=== PATIENT | female | born 1940 | race Caucasian/White ===

== ENCOUNTER 2018-09-22 04:22 | Emergency (ER) | payer MEDICARE, BC ==
[~2018-09-22] VITALS: Ht 160 cm; Wt 92.1 kg
[~2018-09-22 04:22] MED LIST: KEFLEX250 MG PO; LEVOXYL25 MCG PO; NIFEDIPINE ER60 MG PO; NORCO 7.5-3251 EACH PO; ZANTAC 7575 MG PO
--- OUTSIDE RECORDS SUMMARY | 2018-09-22 04:29 | XMS REPORT | Continuity of Care Document ---
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, angina presence unspecified Active Problem 12/09/2017 [facility] Other symptoms involving cardiovascular system Active Diagnosis 06/03/2017 [facility] Heart block Active Diagnosis 06/29/2017 [facility] Cardiac arrhythmia, unspecified cardiac arrhythmia type Active Diagnosis 06/29/2017 [facility] Syncope, unspecified syncope type Active Diagnosis 06/29/2017 [facility] SHORTNESS OF BREATH Active [facility] Medications Medication Details Route Status Patient Instructions Ordering Provider Order Date Source Lisinopril 1 tablet if Bp over 140 Orally Active 10 MG Orally Once a day as needed Lela 05/31/2017 [facility] Omeprazole 1 capsule Orally Active 20 MG Orally Once a day in a.m. [facility] Levoxyl 1 tablet on an empty stomach in the morning Orally Active 25 MCG Orally Once a day [facility] NIFEdipine ER 1 tablet on an empty stomach Orally Active 60 MG Orally Once a day [facility] Omeprazole 1 capsule Orally Active 40 MG Orally Once a day at p.m. [facility] Lisinopril 1 tablet if bp over 140 Orally Active 20 MG Orally Once a day as needed [facility] Lisinopril 1 tablet if Bp over 140 Orally Active 10 MG Orally Once a day as needed [facility] Levoxyl 1 tablet on an empty stomach in the morning Orally Active 25 MCG Orally Once a day [facility] Omeprazole 1 capsule Orally Active 40 MG Orally Once a day at p.m. [facility] Omeprazole 1 capsule Orally Active 20 MG Orally Once a day in a.m. [facility] Cardi[facility] Amlodipine Besylate 1 tablet Orally Active 5 MG Orally Once a day [facility] Lipitor 1 tablet Orally Active 10 MG Orally Once a day [facility]ovascular Allergies, Adverse Reactions, Alerts Substance Category Reaction Severity Reaction type Status Date Reported Comments Source N.K.D.A. Adverse Reaction Info Not Available Adverse Reaction Active 06/28/2017 [facility] Immunizations Immunization Date Given Site Status Last Updated Comments Source Results Order Name Results Value Reference Range Date Interpretation Comments Source Chest 2 views DX Chest 2 views DX Clinical Indication: Coughing, dyspnea; Comparison: None FINDINGS: Patient chin obscures the lung apices. The PA and lateral chest radiographs shows normal lung volumes with bibasilar opacities, blunted costophrenic angles. No visible pneumothorax. Left chest wall pacemaker obscures portions of this exam. Cardiac silhouette size shows minimal enlargement. Thoracic aorta contains atherosclerotic calcifications. The trachea is midline. There are no clinically significant osseous abnormalities noted. IMPRESSION: Suspected small pleural effusions with basilar atelectasis and/or infiltrates SL: HAIM 06/06/2018 - - Read by: Mynor Steven MD Dictated Date/time: 06/06/18 18:03 Electronically Signed by: Mynor Steven MD 06/06/18 18:04 FINAL REPORT [facility] CTA Chest CTA CTA PULMONARY ARTERIES HISTORY: Shortness of breath with any activity; TECHNIQUE: Thin collimation axial images of the pulmonary arteries with IV contrast. Sagittal reformatted images and coronal MIP and 3-D reconstructions obtained. IV CONTRAST: [address] imaging performed at this location utilizes radiation dose optimization techniques which include one or more of the following: -Automated exposure control -Adjustment of the mA and/or kV according to patient size -Use of iterative reconstruction technique CT Radiation Dose DLP 853.21 mGy-cm COMPARISON: Chest radiography dated 06/06/2018 FINDINGS: PULMONARY ARTERIES: No evidence of pulmonary embolism. LUNGS AND PLEURA: Evaluation lungs limited by respiratory motion artifact. Question mild patchy groundglass opacities which may represent air trapping or possibly very mild pulmonary edema. There are small bilateral layering pleural effusions with mild bilateral basilar atelectasis. No pneumothorax. MEDIASTINUM: No mediastinal mass or fluid collection. Mildly prominent mediastinal lymph nodes are noted, nonspecific. Moderate aortic and mild coronary calcification. Heart demonstrates dilation of the left ventricle and left atrium. A dual lead transvenous cardiac pacemaker is in place. No pericardial effusion. Probable small sliding hiatal hernia. BASE OF NECK, UPPER ABDOMEN, SOFT TISSUES, AND BONES: The neck base soft tissues are normal. Thyroid gland is atrophied. The visualized portion of the upper abdominal contents demonstrates cholecystectomy and fatty atrophy of the pancreas. No acute osseous abnormality or aggressive osseous lesion in the chest. IMPRESSION: 1. No pulmonary embolism. 2. Evaluation lungs limited by respiratory motion artifact. Question mild patchy groundglass opacities which may represent air trapping or possibly mild pulmonary edema. 3. Small bilateral layering pleural effusions. 4. Mild nonspecific mediastinal adenopathy, mild/moderate atherosclerotic calcifications, cardiomegaly, transvenous cardiac pacemaker, probable small hiatal hernia. SL: JACINTA 06/06/2018 - - Read by: Myron Pope MD Dictated Date/time: 06/07/18 17:21 Electronically Signed by: Myron Pope MD 06/07/18 17:28 FINAL REPORT [facility] Vital Signs Vital Sign Value Date Comments Source Weight 196 06/28/2017 [facility] Heart Rate 80 06/28/2017 [facility] Diastolic (mm Hg) 70 06/28/2017 [facility] Systolic (mm Hg) 142 06/28/2017 [facility] Weight 196 06/01/2017 [facility] Heart Rate 74 06/01/2017 [facility] Diastolic (mm Hg) 86 06/01/2017 [facility] Systolic (mm Hg) 144 06/01/2017 [facility] Weight 196 05/26/2017 [facility] Heart Rate 76 05/26/2017 [facility] Diastolic (mm Hg) 50 05/26/2017 [facility] Systolic (mm Hg) 104 05/26/2017 [facility] Weight 193 05/18/2017 [facility] Heart Rate 78 05/18/2017 [facility] Diastolic (mm Hg) 82 05/18/2017 [facility] Systolic (mm Hg) 122 05/18/2017 [facility] Encounters Location Location Details Encounter Type Encounter Number Reason For Visit Attending Provider ADM Date DC Date Status Source Procedures Procedure Code Date Perfomer Comments Source
--- OUTSIDE RECORDS SUMMARY | 2018-09-22 04:29 | XMS REPORT ---
Author Author Jesusita Vogel Organization [employer] Address Unknown Phone Unavailable Care Team Providers Care Materials Handler Name Role Phone Jesusita Vogel CP Unavailable Allergies No Known Allergies Problems Problem Type Condition Code Onset Dates Condition Status Assessment SOB (shortness of breath) R06.02 Active Assessment Abnormal EKG R94.31 Active Problem HTN (hypertension), benign I10 Active Assessment Other symptoms involving cardiovascular system R09.89 Active Assessment HTN (hypertension), benign I10 Active Assessment Pre-syncope R55 Active Medications No Known Medications Results No Known Results Summary Purpose [employer] Submission
--- OUTSIDE RECORDS SUMMARY | 2018-09-22 04:29 | XMS REPORT ---
Author Author Jesusita Vogel Organization [employer] Address Unknown Phone Unavailable Care Team Providers Care Pillow Filler Name Role Phone Jesusita Vogel CP Unavailable Allergies, Adverse Reactions, Alerts Substance Reaction Event Type N.K.D.A. Info Not Available Non Drug Allergy Problems Problem Type Condition Code Onset Dates Condition Status Assessment SSS (sick sinus syndrome) I49.5 Active Problem HTN (hypertension), benign I10 Active Assessment SOB (shortness of breath) R06.02 Active Problem SSS (sick sinus syndrome) I49.5 Active Assessment Pre-syncope R55 Active Assessment Other symptoms involving cardiovascular system R09.89 Active Assessment Abnormal EKG R94.31 Active Assessment HTN (hypertension), benign I10 Active Medications Medication Code System Code Instructions Start Date End Date Status Dosage Levoxyl [facility] [address]-78 25 MCG Orally Once a day Active 1 tablet on an empty stomach in the morning NIFEdipine ER [facility] [address]-01 60 MG Orally Once a day Active 1 tablet on an empty stomach Omeprazole [facility] [address]-19 20 MG Orally Once a day in a.m. Active 1 capsule Lisinopril [facility] 53765254858 10 MG Orally Once a day as needed Active 1 tablet if Bp over 140 Omeprazole [facility] [address]-17 40 MG Orally Once a day at p.m. Active 1 capsule Vital Signs Date/Time: Jun 01, 2017 BMI 38.27 Index Weight 196 lbs Height 5'3 in Cardiac Monitoring Heart Rate 74 /min Blood Pressure Diastolic 86 mm Hg Blood Pressure Systolic 144 mm Hg Results No Known Results Summary Purpose [employer] Submission
--- OUTSIDE RECORDS SUMMARY | 2018-09-22 04:29 | XMS REPORT ---
Author Author Jesusita Vogel Organization [employer] Address Unknown Phone Unavailable Care Team Providers Care Antique Clocks Repairer Name Role Phone Jesusita Vogel CP Unavailable Allergies No Known Allergies Problems Problem Type Condition Code Onset Dates Condition Status Problem HTN (hypertension), benign I10 Active Problem SSS (sick sinus syndrome) I49.5 Active Medications Medication Code System Code Instructions Start Date End Date Status Dosage Lisinopril [facility] [address]-87 10 MG Orally Once a day as needed May 31, 2017 Active 1 tablet if Bp over 140 Results No Known Results Summary Purpose [employer] Submission
--- OUTSIDE RECORDS SUMMARY | 2018-09-22 04:29 | XMS REPORT ---
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
--- OUTSIDE RECORDS SUMMARY | 2018-09-22 04:29 | XMS REPORT | Clinical Summary ---
Author Author [facility] Organization [facility] Address Unknown Phone Unavailable Care Team Providers Care Drilling Field Specialist Name Role Phone Asked, No Pcp PCP Unavailable Allergies Comments Active Allergy Reactions Severity Noted Date Adhesive Tape-Silicones Rash High 09/02/2017 Medications End Date Status Medication Sig Dispensed Refills Start Date Active levothyroxine (SYNTHROID, TK 1 T PO QD 0 LEVOXYL) 100 mcg tablet 7 Active valsartan-hydrochlorothia TK 1 T PO QAM 5 zide (DIOVAN-HCT) 7 160-12.5 mg per tablet Active omeprazole (PriLOSEC) 40 Take 40 mg by 0 MG capsule mouth nightly. Active omeprazole (PriLOSEC) 20 Take 20 mg by 0 MG capsule mouth daily. Active naproxen sodium (ALEVE) Take 220 mg 0 220 MG tablet by mouth as needed for mild pain. 10/04/2017 amLODIPine (NORVASC) 10 Take 1 tablet 30 tablet 0 mg tablet (10 mg total) 8 by mouth daily for 30 days. Active Problems Problem Noted Date Hypertensive emergency 09/01/2017 Social History Date Tobacco Use Types Packs/Day Years Used Never Smoker Smokeless Tobacco: Never Used Alcohol Use Drinks/Week oz/Week Comments No Sex Assigned at Date Recorded Not on file Industry Job Start Date Occupation Not on file Not on file Not on file Travel End Travel History Travel Start No recent travel history available. Last Filed Vital Signs Not on file Plan of Treatment Health Maintenance Due Date Last Done Comments SHINGLES VACCINES (#1) 10/09/1989 65+ PNEUMOCOCCAL VACCINE 10/09/2004 (1 of 2 - PCV13) PNEUMOCOCCAL 10/09/2004 POLYSACCHARIDE VACCINE AGE 65 AND OVER INFLUENZA VACCINE 02/23/2018 Implants Device Identifier Shelf Expiration Date Model / Serial / Lot Implanted Type Area Manufactur er Pacemaker Pacemaker Results Not on fileafter 09/21/2017 Insurance Payer Benefit Subscriber ID Type Phone Address Plan / Group MEDICARE MEDICARE xxxxxxxxxx Medicare [place], [place] PART A AND B BCBS BCBS xxxxxxxxxxxx PPO CHOICE PPO/RONALD VIRAMONTES PPO Advance Directives Patient has advance care planning documents, and code status on file. For more i nformation, please contact: Madi Hill [address] [place] [address] Date Inactivated Comments Code Status Date Activated 09/03/2017 6:54 PM Full Code 09/01/2017 11:47 PM Code Status decision reached by: Patient
--- OUTSIDE RECORDS SUMMARY | 2018-09-22 04:29 | XMS REPORT ---
Author Author Jesusita Vogel Organization [employer] Address Unknown Phone Unavailable Care Team Providers Care Escapement Maker Name Role Phone Jesusita Vogel CP Unavailable [...] Instructions Start Date End Date Status Dosage NIFEdipine ER [facility] [address]-76 60 MG Orally Once a day Active 1 tablet on an empty stomach Omeprazole [facility] [address]-55 40 MG Orally Once a day at p.m. Active 1 capsule Levoxyl [facility] [address]-97 25 MCG Orally Once a day Active 1 tablet on an empty stomach in the morning Omeprazole [facility] [address]-76 20 MG Orally Once a day in a.m. Active 1 capsule Vital Signs Date/Time: May 26, 2017 BMI 38.27 Index Weight 196 lbs Height 5'3 in Cardiac Monitoring Heart Rate 76 /min Blood Pressure Diastolic 50 mm Hg Blood Pressure Systolic 104 mm Hg Results No Known Results Summary Purpose [employer] Submission
--- OUTSIDE RECORDS SUMMARY | 2018-09-22 04:29 | XMS REPORT ---
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
--- OUTSIDE RECORDS SUMMARY | 2018-09-22 04:29 | XMS REPORT ---
Author Author Jesusita Vogel Organization [employer] Address Unknown Phone Unavailable Care Team Providers Care Soft Work Wrapper Examiner Name Role Phone Jesusita Vogel CP Unavailable Allergies No Known Allergies Problems Problem Type Condition Code Onset Dates Condition Status Assessment SOB (shortness of breath) R06.02 Active Assessment Abnormal EKG R94.31 Active Problem HTN (hypertension), benign I10 Active Assessment HTN (hypertension), benign I10 Active Assessment Pre-syncope R55 Active Medications No Known Medications Results No Known Results Summary Purpose [employer] Submission
--- OUTSIDE RECORDS SUMMARY | 2018-09-22 04:29 | XMS REPORT ---
Author Author Jesusita Vogel Organization [employer] Address Unknown Phone Unavailable Care Team Providers Care Steam Pan Sponger Name Role Phone Jesusita Vogel CP Unavailable Allergies, Adverse Reactions, Alerts Substance Reaction Event Type N.K.D.A. Info Not Available Non Drug Allergy Problems Problem Type Condition Code Onset Dates Condition Status Assessment SOB (shortness of breath) R06.02 Active Assessment Abnormal EKG R94.31 Active Problem HTN (hypertension), benign I10 Active Assessment HTN (hypertension), benign I10 Active Assessment Pre-syncope R55 Active Medications Medication Code System Code Instructions Start Date End Date Status Dosage Omeprazole [facility] [address]-08 20 MG Orally Once a day in a.m. Active 1 capsule Levoxyl [facility] [address]-34 25 MCG Orally Once a day Active 1 tablet on an empty stomach in the morning NIFEdipine ER [facility] [address]-42 60 MG Orally Once a day Active 1 tablet on an empty stomach Omeprazole [facility] [address]-52 40 MG Orally Once a day at p.m. Active 1 capsule Vital Signs Date/Time: May 18, 2017 BMI 37.69 Index Weight 193 lbs Height 5'3 in Cardiac Monitoring Heart Rate 78 /min Blood Pressure Diastolic 82 mm Hg Blood Pressure Systolic 122 mm Hg Results No Known Results Summary Purpose [employer] Submission
--- OUTSIDE RECORDS SUMMARY | 2018-09-22 04:29 | XMS REPORT ---
Author Author Jesusita Vogel Organization [employer] Address Unknown Phone Unavailable Care Team Providers Care Bead Wire Taper Name Role Phone Jesusita Vogel CP Unavailable Allergies No Known Allergies Problems Problem Type Condition Code Onset Dates Condition Status Problem HTN (hypertension), benign I10 Active Problem SSS (sick sinus syndrome) I49.5 Active Medications No Known Medications Results No Known Results Summary Purpose [employer] Submission
--- OUTSIDE RECORDS SUMMARY | 2018-09-22 04:29 | XMS REPORT ---
Author Author Jesusita Vogel Organization [employer] Address Unknown Phone Unavailable Care Team Providers Care Receptionist/Telephone Operator Name Role Phone Jesusita Vogel CP Unavailable Allergies, Adverse Reactions, Alerts Substance Reaction Event Type N.K.D.A. 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 Active 1 capsule Omeprazole ND 22733187746 20 MG Orally Once a day in a.m. Active 1 capsule Amlodipine Besylate ND 13997413712 5 MG Orally Once a day Active 1 tablet Lipitor ND 73970172291 10 MG Orally Once a day Active 1 tablet Vital Signs Date/Time: Jun 28, 2017 BMI 38.27 Index Weight 196 lbs Height 5'3 in Cardiac Monitoring Heart Rate 80 /min Blood Pressure Diastolic 70 mm Hg Blood Pressure Systolic 142 mm Hg Results No Known Results Summary Purpose [employer]Works Submission
--- OUTSIDE RECORDS SUMMARY | 2018-09-22 04:29 | XMS REPORT ---
Author Author Jesusita Vogel Organization [employer] Address Unknown Phone Unavailable Care Team Providers Care Miter Cutter Name Role Phone Jesusita Vogel CP Unavailable [...]
--- OUTSIDE RECORDS SUMMARY | 2018-09-22 04:30 | XMS REPORT ---
Author Author [facility] Address Unknown Phone Unavailable Care Team Providers Care Fare Register Repairer Name Role Phone Remington ADAN Unavailable Unavailable Problems This patient has no known problems. Allergies, Adverse Reactions, Alerts This patient has no known allergies or adverse reactions. Medications This patient has no known medications. Results Test Description Test Time Test Comments Text Results Atomic Results Result Comments CHEST 2 VIEWS [place] [address] Patient Name: ASYA ATKINSON MR #: [id number] : 1940 Age/Sex: 76/F Req #: [id number] Adm Physician: Ordered by: SKIP ADAN MD Report #: [id number] Location: ER Room/Bed: Procedure: [id number] DX/CHEST 2 VIEWS Exam Date: 05/02/17 Exam Time: 0100 REPORT STATUS: Signed EXAM: CHEST 2 VIEWS, PA and lateral DATE: 05/02/2017 12:40 AM Time stamp on exam: 0046 hours INDICATION: Cough, can't breathe COMPARISON: PA and lateral view of the chest July 30, 2016 FINDINGS: LINES/TUBES: None LUNGS: Left retrocardiac bronchial thickening. PLEURA: No effusions or pneumothorax. Chronic elevation of the right hemidiaphragm. HEART AND MEDIASTINUM: Normal size and contour. BONES AND SOFT TISSUES: No acute findings. Surgical clips right upper quadrant of the abdomen. IMPRESSION: Possible left lower lobe bronchiolitis. Signed by: Dr. Carla Browning M.D. on 05/02/2017 1:08 AM Dictated By: CARLA BROWNING MD 7 Transcribed By: MORTEZA on 05/02/17107 COPY TO: SKIP ADAN MD
[2018-09-22] MEDS ORDERED: MONTELUKAST SOD10 MG PO (04:39)
[2018-09-22] MEDS ORDERED: LEVOTHYROXINE50 MCG PO (04:39)
[2018-09-22] MEDS ORDERED: SERTRALINE HCL50 MG PO (04:40)
[2018-09-22] MEDS ORDERED: LOSARTAN POTASS25 MG PO (04:40)
[2018-09-22] MEDS ORDERED: SPIRONOLACTONE25 MG PO (04:41)
[2018-09-22] MEDS ORDERED: METOPROLOL TART50 MG PO (04:41)
[2018-09-22] MEDS ORDERED: LASIX40 MG PO ×2 (04:42→04:43)
[2018-09-22] MEDS ORDERED: RANITIDINE HCL150 MG PO (04:42)
[2018-09-22] MEDS ORDERED: FISH OIL 1,0001 EAC2 PO (04:43)
[2018-09-22] MEDS ORDERED: POTASSIUM CHLO20 ME1 PO (04:44)
[2018-09-22] MEDS ORDERED: HYDROCODONE/APAP 7.5MG-325MG 1 EA TAB PO ONE (05:00)
[2018-09-22 05:30] LABS: CLARITY,URINE CLEAR (CLEAR); COLOR,URINE YELLOW (YELLOW); LEUKOCYTE ESTERASE ,URINE NEGATIVE (NEGATIVE); NITRITE,URINE NEGATIVE (NEGATIVE)
[2018-09-22 05:31] LABS: BILIRUBIN,URINE NEGATIVE (NEGATIVE); KETONES,URINE NEGATIVE (NEGATIVE); PROTEIN,URINE DIPSTICK NEGATIVE (NEGATIVE); URINE UROBILINOGEN 0.2 mg/dL (0.2 - 1)
[2018-09-22 05:40] LABS: BACTERIA,URINE MODERATE /HPF
[2018-09-22 05:41] LABS: EPITHELIAL CELLS,URINE MODERATE /LPF; RBC,URINE 0-5 /HPF (0-5)
--- NOTE | 2018-09-22 05:54 | Diagnostic Imaging Report ---
Lumbar spine complete CPT code: 79851 Indication: Low back pain radiating to right leg Technique: A.P., lateral and bilateral oblique views of the lumbar spine obtained. Comparison: None. Findings: The bones are diffusely demineralized. There are five non rib bearing vertebral bodies. Alignment is maintained on the AP and lateral views. The transverse processes are intact. The vertebral body heights are well maintained. There is disc space narrowing at L5-S1. There is facet arthropathy throughout the lower lumbar spine. No pars defects. No abnormalities of the sacroiliac joints. The sacrum is normal. The spinous processes are normally aligned. There is no evidence of subluxation. The bowel gas pattern is unremarkable. A calcification in the left hemiabdomen at the level of L2 measures 2.4 cm. There are cholecystotomy clips in the right upper quadrant. The aorta is diffusely calcified. IMPRESSION: 1. No evidence of subluxation or compression fracture involving the lumbar spine. 2. Diffuse demineralization. 3. Degenerative changes as described above. Signed by: Dr. Michael Mark MD on 09/22/2018 5:51 AM
[2018-09-22 06:08] VITALS: BP 148/78
== END 2018-09-22 06:16 | disposition home or self-care (01) ==
LOC: ER 04:22
DX: M54.41 Lumbago with sciatica, right side (principal); S39.012A Strain of muscle, fascia and tendon of lower back, initial encounter; X50.0XXA Overexertion from strenuous movement or load, initial encounter; Y92.008 Other place in unspecified non-institutional (private) residence as the place of occurrence of the external cause; I10 Essential (primary) hypertension; N28.9 Disorder of kidney and ureter, unspecified; I50.9 Heart failure, unspecified; F32.9 Major depressive disorder, single episode, unspecified
CPT/HCPCS: 72110; 81001; 99283